=== PATIENT | male | born 2000 | race Caucasian/White ===

== ENCOUNTER 2020-03-13 18:46 | Emergency (ER) | payer OTHER, SELFPAY ==
--- NOTE | ~2020-03-13 | XR_ITS ---
XR finger 3rd LT min 2V DATE: 03/13/2020 19:23 INDICATION: Laceration and pain at tip of third digit TECHNIQUE: 4 views COMPARISON: None FINDINGS: No fracture or dislocation or radiopaque foreign body is detected. IMPRESSION: No fracture, dislocation or radiopaque foreign body Reviewed, dictated and finalized at location A.
[2020-03-13 18:48] VITALS: BP 111/64; PULSE 78; RESP 18; TEMP 36.6; O2SAT 98
--- NOTE | 2020-03-13 19:16 | ED.WOUNDLAC ---
HPI - Wound/Laceration General Chief Complaint: Wound/Laceration <Terri Hammond PA-C - Last Filed: 03/13/20 20:40> Stated Complaint: finger lac <TRISTON uAstin Last Filed: 03/13/20 20:40> Time Seen by Provider: 03/13/20 18:53 <TRISTON Austin Last Filed: 03/13/20 20:40> Source: patient <TRISTON Austin Last Filed: 03/13/20 20:40> Mode of arrival: ambulatory <TRISTON Austin Last Filed: 03/13/20 20:40> Limitations: no limitations <TRISTON Austin Last Filed: 03/13/20 20:40> History of Present Illness HPI narrative: This is a 19-year-old male that presents the emergency department for laceration to left third finger sustained just prior to arrival. 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 Reports he is up to date on tetanus. Denies decreased range of motion or numbness. <TRISTON Austin Last Filed: 03/13/20 20:40> Related Data Home Medications: Home Medications Medication Instructions Recorded Confirmed No Home Medications 03/13/20 03/13/20 <TRISTON Austin Last Filed: 03/13/20 20:40> Allergies/Adverse Reactions: Allergies Allergy/AdvReac Type Severity Reaction Status Date / Time No Known Allergies Allergy Verified 03/13/20 18:51 <TRISTON Austin Last Filed: 03/13/20 20:40> Review of Systems Review of Systems: Narrative: CONSTITUTIONAL: Denies fever SKIN: Reports laceration MUSCULOSKELETAL: Denies joint pain, or myalgia. NEUROLOGIC: Denies numbness <TRISTON Austin Last Filed: 03/13/20 20:40> All systems reviewed & are unremarkable except as noted in HPI and below <TRISTON Austin Last Filed: 03/13/20 20:40> [facility] Past Medical History Medical History: Medical History (Updated 03/13/20 @ 20:40 by Terri Hammond PA-C) No active medical problems <Terri Hammond PA-C - Last Filed: 03/13/20 20:40> Social History Social History: Social History (Updated 03/13/20 @ 19:39 by Terri Hammond PA-C) Smoking status: Never smoker Gender identity (if verbalized by the patient): Male <Terri Hammond PA-C - Last Filed: 03/13/20 20:40> Exam Narrative: Exam Narrative: GENERAL: Well-appearing, well-nourished, and in no acute distress. HEAD: Normocephalic, atraumatic. EYES: EOMI. EXTREMITIES: Normal range of motion. No edema. Left third finger ulnar surface of distal phalanx with 1 cm linear laceration into subcutaneous tissue SKIN: Warm, dry, no rash. NEURO: No focal deficits. Alert and oriented x3. PSYCH: Normal mood and affect <Terri Hammond PA-C - Last Filed: 03/13/20 20:40> Course Vital Signs Vital signs: Vital Signs Temperature 97.8 F 03/13/20 18:48 Pulse Rate 78 03/13/20 18:48 Respiratory Rate 18 03/13/20 18:48 Blood Pressure 111/64 03/13/20 18:48 Pulse Oximetry 98 03/13/20 18:48 Temperature 97.8 F 03/13/20 18:48 Pulse Rate 78 03/13/20 18:48 Respiratory Rate 18 03/13/20 18:48 Blood Pressure 111/64 03/13/20 18:48 Pulse Oximetry 98 03/13/20 18:48 <Terri Hammond PA-C - Last Filed: 03/13/20 20:40> Vital Signs Temperature 97.8 F 03/13/20 18:48 Pulse Rate 78 03/13/20 18:48 Respiratory Rate 18 03/13/20 18:48 Blood Pressure 111/64 03/13/20 18:48 Pulse Oximetry 98 03/13/20 18:48 Temperature 97.8 F 03/13/20 18:48 Pulse Rate 78 03/13/20 18:48 Respiratory Rate 18 03/13/20 18:48 Blood Pressure 111/64 03/13/20 18:48 Pulse Oximetry 98 03/13/20 18:48 <Ani Veras MD - Last Filed: 03/13/20 20:45> Procedures Laceration Laceration 1: Date: 03/13/20 <Terri Hammond PA-C - Last Filed: 03/13/20 20:40> Time: 20:38 <Terri Hammond PA-C - Last Filed: 03/13/20 20:40> Site: hand <Terri Hammond PA-C - Last Filed: 03/13/20 20:40> Side (If applicable): left <Terri Cabral
--- NOTE | 2020-03-13 19:30 | PC.NURSE ---
Assumed care of pt at this time. report from ZAID Hensley
[2020-03-13 20:44] VITALS: BP 136/88; PULSE 55; RESP 16; TEMP 36.3; O2SAT 99
== END 2020-03-13 20:57 | disposition home or self-care (01) ==
PROVIDERS: Emergency Provider General Practice; PCP Pediatrics
DX: S61.213A Laceration without foreign body of left middle finger without damage to nail, initial encounter (principal); W31.82XA Contact with other commercial machinery, initial encounter; Y93.G1 Activity, food preparation and clean up
CPT/HCPCS: 12001; 73140; 99283

== ENCOUNTER 2022-09-06 10:17 | Emergency (ER) | payer BC, SELFPAY ==
[2022-09-06 10:34] VITALS: BP 137/87; PULSE 88; RESP 16; TEMP 36.6; O2SAT 100
--- NOTE | 2022-09-06 11:25 | ED.URI ---
HPI - URI/Sore Throat General Chief Complaint: Upper Respiratory Infection Stated Complaint: sore throat, cough, Time Seen by Provider: 09/06/22 10:40 Source: patient Mode of arrival: ambulatory Limitations: no limitations History of Present Illness HPI Narrative: Benjamin is a 21-year-old male patient presenting to the clinic today with complaints of sore throat, cough, and nasal congestion x3 days. He denies any known fevers. States he may also have pinkeye to the left eye. MD elicited complaint: sore throat and nasal congestion Related Data Allergies Allergy/AdvReac Type Severity Reaction Status Date / Time No Known Allergies Allergy Unverified 09/06/22 10:46 Review of Systems Review of Systems: Pertinent positives per HPI. Patient denies any fever, chills, rash, headache, visual changes, dizziness, shortness of breath, chest pain, palpitations, nausea, vomiting, diarrhea, constipation, abdominal pain, or any urinary issues. PMFSH Past Medical History Medical History No active medical problems Social History Social History Smoking status: Never smoker Second hand tobacco smoke exposure: No Alcohol intake: current Alcohol use details: social Substance use: never Substance use type: does not use Gender identity (if verbalized by the patient): Male Sexual Orientation (if Verbalized by the Patient): Straight or Heterosexual Comments At the time of my signature, I reviewed and agree with the nursing past medical, surgical, social, and family history. There is no relevant family history pertinent to the patient complaint. Exam Narrative: General: Well-developed, well nourished, in no apparent distress Head: Normocephalic, atraumatic Eyes: Pupils equally round and reactive to light bilaterally, EOM intact, sclera and conjunctive clear, no discharge, lids normal Ears: TMs intact and clear, ear canals clear, no drainage, grossly hearing normal. Nose: Nares patent, clear nasal discharge, mild inflammation, no sinus tenderness. Mouth: Oral pharynx without lesions or masses, good dentition, MMM. Oropharynx red, postnasal Neck: Supple, trachea midline, no enlargement of anterior or posterior cervical nodes, no thyroid masses or goiter palpable. Cardio: Regular rate and rhythm, s1 and s2 normal, no murmur appreciated. Resp: Clear to auscultation bilaterally, no rhonchi, rales, wheezing or rubs Course Course Emergency Course: Portions of this record may have been created with voice recognition software. Level of Care: Express Care Visit Vital Signs Vital signs: Vital Signs Temperature 36.6 C 09/06/22 10:34 Pulse Rate 88 09/06/22 10:34 Respiratory Rate 16 09/06/22 10:34 Blood Pressure 137/87 09/06/22 10:34 Pulse Oximetry 100 09/06/22 10:34 Temperature 36.6 C 09/06/22 10:34 Pulse Rate 88 09/06/22 10:34 Respiratory Rate 16 09/06/22 10:34 Blood Pressure 137/87 09/06/22 10:34 Pulse Oximetry 100 09/06/22 10:34 Vital signs reviewed MDM - URI/Sore Throat Differential Diagnosis Differential diagnosis: Likely sinusitis, viral infection, influenza and pharyngitis Lab Data Labs: Influenza A Screen Negative Reference Range: Negative Influenza B Screen Negative Reference Range: Negative Discharge Plan Discharge Clinical Impression: Upper respiratory infection, Pharyngitis, Dermatitis Patient Disposition: Home, Self-Care Condition: Stable Instructions: Antibiotic Form, Pharyngitis (ED), Upper Respiratory Infection (ED), Viral Syndrome (ED), Dermatitis (ED) Additional Instructions: COVID and influenza testing was negative in the clinic today. I suspect you have a URI/pharyngitis. Strep culture was
== END 2022-09-06 11:33 | disposition home or self-care (01) ==
PROVIDERS: Emergency Provider Nurse Practitioner Family; PCP Family Medicine
DX: J06.9 Acute upper respiratory infection, unspecified (principal); J02.9 Acute pharyngitis, unspecified; L30.9 Dermatitis, unspecified; Z20.822 Contact with and (suspected) exposure to COVID-19
CPT/HCPCS: 87081; 87426; 87804; 99213; C9803; G0463

== ENCOUNTER 2022-11-10 08:58 | Emergency (ER) | payer BC, SELFPAY ==
[2022-11-10 09:09] VITALS: BP 131/86; PULSE 75; RESP 16; TEMP 35.8; O2SAT 99
--- NOTE | 2022-11-10 09:16 | ED.EYEPROB ---
HPI - Eye Problem General Chief complaint: Eye Problems Stated complaint: EYE REDNESS Time Seen by Provider: 11/10/22 09:16 Source: patient Mode of arrival: ambulatory Limitations: no limitations History of Present Illness HPI Narrative: 22-year-old male presents with complaint of redness to left eye since yesterday morning. Has gotten progressively worse. Reports yellow drainage from left eye this morning. Complaining of itching. No pain or vision change. No known bacterial conjunctivitis exposure. All systems reviewed and negative except as noted above. Related Data Allergies Allergy/AdvReac Type Severity Reaction Status Date / Time No Known Allergies Allergy Verified 11/10/22 09:16 Review of Systems Review of Systems: CONSTITUTIONAL: Denies fever, chills, or sweats. EYES: Denies visual changes. Reports redness, discharge, itching left eye.. ENT: Denies rhinorrhea, congestion, sore throat, or otalgia. CARDIOVASCULAR: Denies chest pain, palpitations, or edema. RESPIRATORY: Denies cough or dyspnea. GASTROINTESTINAL: Denies abdominal pain, nausea, vomiting, or diarrhea. GENITOURINARY: Denies dysuria or hematuria. SKIN: Denies rash or itching. MUSCULOSKELETAL: Denies back pain, joint pain, or myalgia. NEUROLOGIC: Denies headache, numbness, or weakness. PSYCHIATRIC: Denies anxiety or depression. All other systems reviewed are negative, except as documented in HPI. [facility] Past Medical History Medical History No active medical problems Social History Social History Smoking status: Never smoker Second hand tobacco smoke exposure: No Alcohol intake: current Alcohol use details: social Substance use: never Substance use type: does not use Living arrangements: with family Occupation/Education: occupation Gender identity (if verbalized by the patient): Male Sexual Orientation (if Verbalized by the Patient): Straight or Heterosexual Comments At time of signature, agree with nursing past medical, surgical, social and family history. There is no relevant family history pertinent to the presenting complaint. Exam Narrative: GENERAL: This is a well-nourished, well-developed patient, in no apparent distress. HEAD: normocephalic, atraumatic. EYES: PERRL. Sclera clear/white. Vision is grossly intact. EARS: External ears normal NOSE: External nose normal NECK: Neck supple, non-tender without lymphadenopathy, masses or thyromegaly. CARDIOVASCULAR: Regular rate and rhythm without murmurs, gallops, or rubs. RESPIRATORY: Clear to auscultation. Breath sounds equal bilaterally. No wheezes, rales, or rhonchi. SKIN: warm, Dry, intact with no suspicious lesions or rash, good texture and turgor. NEURO: awake, alert, and oriented to person, place and time. There were no obvious focal neurologic abnormalities. EXTREMITIES: No joint tenderness, effusion, or edema noted. Course Course Level of Care: Express Care Visit Vital Signs Vital signs: Vital Signs Temperature 35.8 C L 11/10/22 09:09 Pulse Rate 75 11/10/22 09:09 Respiratory Rate 16 11/10/22 09:09 Blood Pressure 131/86 11/10/22 09:09 Pulse Oximetry 99 11/10/22 09:09 Temperature 35.8 C L 11/10/22 09:09 Pulse Rate 75 11/10/22 09:09 Respiratory Rate 16 11/10/22 09:09 Blood Pressure 131/86 11/10/22 09:09 Pulse Oximetry 99 11/10/22 09:09 Reviewed MDM - Eye Problem MDM Narrative Medical decision making narrative: At time of signature, agree with nursing past medical, surgical, social and family history. There is no relevant family history pertinent to the presenting complaint. Differential Diagnosis Differential diagnosis: Likely conjunctivitis Discharge Plan Discharge Clinical Impression: Acute bacterial conjunctivitis of left eye Patient Disposition: Home, Self-Care Condition: Stable Instruc
== END 2022-11-10 09:25 | disposition home or self-care (01) ==
PROVIDERS: Emergency Provider Nurse Practitioner Family; PCP Family Medicine
DX: H10.32 Unspecified acute conjunctivitis, left eye (principal)
CPT/HCPCS: 99213; G0463